=== PATIENT | female | born 1985 | race Caucasian/White ===

== ENCOUNTER 2019-03-21 23:48 | Emergency (ER) | payer OTHER ==
[~2019-03-21] VITALS: Ht 157.5 cm; Wt 61.3 kg
[2019-03-21 23:54] VITALS: BP 120/70
[2019-03-22] MEDS ORDERED: diphenhydrAMINE 25mg capsule PO ONE (00:35)
[2019-03-22] MEDS ORDERED: ketorolac trometh inj. 60 MG/2 ML VIAL IM ONE (00:35)
[2019-03-22] MEDS ORDERED: proCHLORperazine 10mg tablet PO ONE (00:35)
== END 2019-03-22 01:43 | disposition home or self-care (01) ==
LOC: ER 23:49
DX: G43.909 Migraine, unspecified, not intractable, without status migrainosus (principal); K92.0 Hematemesis; Z88.0 Allergy status to penicillin; Z88.1 Allergy status to other antibiotic agents
CPT/HCPCS: 71046; 96372; 99283; J1885; Q0163; Q0164